=== PATIENT | male | born 1965 | race Caucasian/White ===

== ENCOUNTER 2020-01-23 16:41 | Emergency (ER) | payer OTHER ==
[2020-01-23] MEDS ORDERED: Ondansetron 4 MG/2 ML SDV IVPUSH ONE (16:44)
[2020-01-23] MEDS ORDERED: Sodium Chloride 0.9% 1,000 ML IV ONE ×3 (16:44→19:05)
[2020-01-23 17:12] LABS: HEMOGLOBIN A1C 4.8 % (4.3-5.7)
[2020-01-23] MEDS ORDERED: Thiamine 100 MG in Sodium Chloride 0.9% 100 ML IV ONE (17:17)
[2020-01-23] MEDS ORDERED: Pantoprazole 40 MG Vial IVPUSH ONE (17:18)
[2020-01-23] MEDS ORDERED: Famotidine 20 MG/2 ML SDV IVPUSH ONE (17:18)
[2020-01-23] MEDS ORDERED: Promethazine 25 MG/ML SDV IM ONE (17:18)
[2020-01-23] MEDS ORDERED: Morphine 2 MG/ML Syringe IM ONE (18:06)
[2020-01-23] MEDS ORDERED: Ertapenem 1 GM in Sodium Chloride 0.9% 100 ML IV ONE (18:06)
[2020-01-23] MEDS ORDERED: Iopamidol 612 MG/ML 100 ML Bottle IVPUSH ONE (18:06)
[2020-01-23] MEDS ORDERED: LORazepam 2 MG/ML SDV IVPUSH ONE (18:11)
--- NOTE | 2020-01-23 18:25 | EDM.PDOC ---
ED HPI GENERAL MEDICAL PROBLEM - General Chief Complaint: General Stated Complaint: nausea, vomiting, abdominal/chest pain Time Seen by Provider: 01/23/20 17:06 Source of Information: Reports: Patient History Limitations: Reports: No Limitations - History of Present Illness INITIAL COMMENTS - FREE TEXT/NARRATIVE: Patient comes to ER via ambulance after experiencing a four day history of upper abdominal pain, nausea/emesis. Unable to keep food down. Minimally able to take fluids. Admits to ETOH dependence and reports that he drinks 6-7 juice glasses of bourbon daily. Gets shaky when he does not drink alcohol but denies hallucinations. Unable to drink ETOH with current symptoms. Denies having symptoms like this before. Has had diverticulitis but that felt different than current pain. Denies vomiting any blood/passage of blood in stool. Minimal bowel movements/ urination over last 4 days. Denies fever/chills. Denies and URI/respiratory changes/dry cough/SOB. Pain does not radiate anywhere. Feels weak, unable to get off of couch this afternoon. Did faint once at home and sustained small scalp wound right posterior scalp. Denies neck pain/headache/limb pain from fall. No other acute changes reported. abominal pain/chest Pain Score (Numeric/FACES): 8 - Related Data Allergies Allergy/AdvReac Type Severity Reaction Status Date / Time No Known Drug Allergies Allergy Cannot Verified 01/23/20 16:43 Remember Home Meds: Home Meds Omeprazole 20 mg PO DAILY 01/05/18 [History] Past Medical History HEENT History: Reports: Impaired Vision Cardiovascular History: Reports: None Respiratory History: Reports: Other (See Below) Other Respiratory History: hay fever Gastrointestinal History: Reports: Colon Polyp, Diverticulosis, GERD, Hemorrhoids, Other (See Below) Other Gastrointestinal History: abdominal hernia Genitourinary History: Reports: None Musculoskeletal History: Reports: Osteoarthritis Neurological History: Reports: None Psychiatric History: Reports: Addiction (ETOH) Hematologic History: Reports: None Immunologic History: Reports: None Dermatologic History: Reports: Eczema Other Dermatologic History: rosacia - Infectious Disease History Infectious Disease History: Reports: Chicken Pox - Past Surgical History HEENT Surgical History: Reports: None Cardiovascular Surgical History: Reports: None Respiratory Surgical History: Reports: None GI Surgical History: Reports: Colonoscopy, Polypectomy Other GI Surgeries/Procedures: colonoscopy today 01/05/18 Male Surgical History: Reports: None Neurological Surgical History: Reports: None Musculoskeletal Surgical History: Reports: None Dermatological Surgical History: Reports: None Social & Family History - Family History Family Medical History: Noncontributory - Tobacco Use Smoking Status *Q: Never Smoker - Caffeine Use Caffeine Use: Reports: Coffee, Soda, Tea - Alcohol Use Days Per Week of Alcohol Use: 7 Number of Drinks Per Day: 6 Total Drinks Per Week: 42 Date of Last Drink: 01/18/20 Alcohol Use in Last Twelve Months: Yes Alcohol Use Frequency: Daily - Recreational Drug Use Recreational Drug Use: No Drug Use in Last 12 Months: No ED ROS GENERAL - Review of Systems Review Of Systems: See Below Constitutional: Reports: Malaise, Weakness, Fatigue, Decreased Appetite. Denies : Fever, Chills, Night Sweats, Diaphoresis HEENT: Denies: Ear Pain, Eye Pain, Nosebleed, Nose Pain, Rhinitis, Sinus Problem , Throat Pain, Throat Swelling, Vertigo, Vision Change Respiratory: Reports: No Symptoms Cardiovascular: Reports: Lightheadedness, Syncope. Denies: Chest Pain, Edema, Orthopnea, Palpitations GI/Abdominal: Reports: Abdominal Pain, Anorexia, Decreased Appetite, Nausea, Vomiting. Denies: Black Stool, Bloody Stool, Constipation, Diarrhea, Difficulty Swallowing, Distension, Hematemesis, Hematochezia : Denies: Frequency, Hematuria, Urgency Musculoskeletal: Reports: No Symptoms Skin: Reports: No Symptoms Neurological: Reports: Dizziness, Syncope, Difficulty Walking (weak), Weakness ( global). Denies: Headache, Numbness, Paresthesia, Seizure, Tingling, Tremors, Change in Speech Psychiatric: Reports: Cravings (ETOH). Denies: Confusion, Hallucinations, Homicidal Ideation, Mood Lability, Suicidal Ideation Hematologic/Lymphatic: Reports: No Symptoms ED EXAM, GENERAL - Physical Exam Exam: See Below Exam Limited By: No Limitations General Appearance: Alert, WD/WN, Other (pale, no acute distress) Eye Exam: Bilateral Eye: EOMI, PERRL Ears: Hearing Grossly Normal, Other (dried blood noted left ear/appears to be from scalp wound) Nose: No: Nasal Deformity, Nasal Swelling, Nasal Drainage Throat/Mouth: Normal Lips, Normal Voice, No Airway Compromise Head: Atraumatic, Normocephalic Neck: Normal Inspection, Supple, Non-Tender, Full Range of Motion. No: Tender Lateral, Tender Midline Respiratory/Chest: No Respiratory Distress, Lungs Clear, Normal Breath Sounds, No Accessory Muscle Use, Chest Non-Tender Cardiovascular: No Murmur, Tachycardia Peripheral Pulses: 2+: Radial (L), Radial (R) GI/Abdominal: Soft, Tender (globally tender, more so in epigastric/LUQ/RUQ), Abnormal Bowel Sounds (quiet throughout). No: No Distention, Guarding, Rigid, Rebound (Male) Exam: Deferred Rectal (Males) Exam: Deferred Back Exam: No: CVA Tenderness (L), CVA Tenderness (R), Muscle Spasm, Paraspinal Tenderness, Vertebral Tenderness Extremities: Normal Range of Motion, Non-Tender, Slow Capillary Refill Neurological: Alert, Oriented, Normal Cognition, Other (equal tone/strength bilaterally upper and lower extremities) Psychiatric: Normal Affect, Normal Mood Skin Exam: Warm, Dry, Ecchymosis (left elbow), Wound/Incision (dried blood over small laceration left posterior scalp) EKG INTERPRETATION EKG Date: 01/23/20 Time: 16:55 Rhythm: Other (Sinus tachycardia) Rate (Beats/Min): 148 [place]: Normal P-Wave: Present QRS: Normal ST-T: Normal QT: Normal Course - Vital Signs Last Recorded V/S: Last Vital Signs Temp 36.3 C 01/23/20 16:52 Pulse 132 H 01/23/20 19:07 Resp 27 H 01/23/20 19:07 BP 121/62 01/23/20 19:07 Pulse Ox 100 01/23/20 19:07 - Orders/Labs/Meds Orders: Active Orders 24 hr Category Date Time Status EKG Documentation Completion [RC] ASDIRECTED Care 01/23/20 16:53 Active Glucose [Blood Glucose Check, Bedside] [RC] ONETIME Care 01/23/20 19:16 Ordered Abdomen 2V AP Flat Upright [CR] Stat Exams 01/23/20 17:35 Ordered Abdomen w Cont [CT] Stat Exams 01/23/20 18:03 Ordered Chest 1V Frontal [CR] Stat Exams 01/23/20 17:02 Ordered CULTURE BLOOD [BC] Stat Lab 01/23/20 16:50 Received CULTURE BLOOD [BC] Stat Lab 01/23/20 17:00 Received Sodium Chloride 0.9% [Normal Saline] 1,000 ml Med 01/23/20 19:05 Ordered IV .BOLUS Sodium Chloride 0.9% [Saline Flush] Med 01/23/20 18:05 Ordered 10 ml FLUSH ASDIRECTED PRN Blood Culture x2 Reflex Set [OM.PC] Stat Oth 01/23/20 16:55 Ordered Saline Lock Insert [OM.PC] Routine Oth 01/23/20 18:05 Ordered Medication Orders Sodium Chloride (Normal Saline) 1,000 mls @ 500 mls/hr IV .BOLUS ONE Stop: 01/23/20 21:04 Last Admin: 01/23/20 19:13 Dose: 500 mls/hr Sodium Chloride (Saline Flush) 10 ml FLUSH ASDIRECTED PRN PRN Reason: Keep Vein Open Last Admin: 01/23/20 19:17 Dose: 10 ml Admin: 01/23/20 19:11 Dose: 10 ml Labs: Laboratory Tests 01/23/20 01/23/20 01/23/20 Range/Units 17:00 17:00 17:00 WBC 12.5 H (4.0-10.2) K/uL RBC 4.65 (4.33-5.41) M/uL Hgb 16.5 D (13.1-16.8) g/dL Hct 47.5 (39.0-49.0) % MCV 102.2 H D (84.0-98.0) fL MCH 35.5 H (28.2-33.3) pg MCHC 34.7 (31.7-36.0) g/dL RDW 11.4 (11.2-14.1) % Plt Count 72 L D (150-350) K/uL Neut % (Auto) 92.8 H (45.0-80.0) % Lymph % (Auto) 1.4 L (10.0-50.0) % [place] % (Auto) 5.5 (2.0-14.0) % Eos % (Auto) 0.0 (0.0-5.0) % Baso % (Auto) 0.3 (0.0-2.0) % Neut # (Auto) 11.58 H (1.40-7.00) K/uL Lymph # (Auto) 0.17 L (0.50-3.50) K/uL [place] # (Auto) 0.68 (0.00-1.00) K/uL Eos # (Auto) 0.00 (0.00-0.50) K/uL Baso # (Auto) 0.04 (0.00-0.20) K/uL Sodium 129 L D (136-145) mmol/L Potassium 3.7 (3.5-5.1) mmol/L Chloride 87 L D (98-107) mmol/L Carbon Dioxide 13.9 L D (21.0-32.0) mmol/L BUN 21 H (7-18) mg/dL Creatinine 1.45 H (0.51-1.17) mg/dL Est Cr Clr Drug Dosing 57.00 mL/min Estimated GFR (MDRD) 51 mL/min Glucose 371 H (74-106) mg/dL Hemoglobin A1c (4.3-5.7) % Lactic Acid 8.6 H (0.4-2.0) mmol/L Calcium 8.5 (8.5-10.1) mg/dL Magnesium 1.6 L (1.8-2.4) mg/dL Total Bilirubin 7.0 H (0.2-1.0) mg/dL AST 166 H (15-37) U/L ALT 68 (12-78) U/L Alkaline Phosphatase 180 H (46-116) IU/L Total Protein 8.1 (6.4-8.2) g/dL Albumin 4.0 (3.4-5.0) g/dL Amylase (25-115) U/L Lipase (73-393) U/L Ethyl Alcohol (0.000-0.080) g/dL 01/23/20 01/23/20 01/23/20 Range/Units 17:00 17:00 18:41 WBC (4.0-10.2) K/uL RBC (4.33-5.41) M/uL Hgb (13.1-16.8) g/dL Hct (39.0-49.0) % MCV (84.0-98.0) fL MCH (28.2-33.3) pg MCHC (31.7-36.0) g/dL RDW (11.2-14.1) % Plt Count (150-350) K/uL Neut % (Auto) (45.0-80.0) % Lymph % (Auto) (10.0-50.0) % [place] % (Auto) (2.0-14.0) % Eos % (Auto) (0.0-5.0) % Baso % (Auto) (0.0-2.0) % Neut # (Auto) (1.40-7.00) K/uL Lymph # (Auto) (0.50-3.50) K/uL [place] # (Auto) (0.00-1.00) K/uL Eos # (Auto) (0.00-0.50) K/uL Baso # (Auto) (0.00-0.20) K/uL Sodium (136-145) mmol/L Potassium (3.5-5.1) mmol/L Chloride (98-107) mmol/L Carbon Dioxide (21.0-32.0) mmol/L BUN (7-18) mg/dL Creatinine (0.51-1.17) mg/dL Est Cr Clr Drug Dosing mL/min Estimated GFR (MDRD) mL/min Glucose (74-106) mg/dL Hemoglobin A1c 4.8 (4.3-5.7) % Lactic Acid 6.2 H (0.4-2.0) mmol/L Calcium (8.5-10.1) mg/dL Magnesium (1.8-2.4) mg/dL Total Bilirubin (0.2-1.0) mg/dL AST (15-37) U/L ALT (12-78) U/L Alkaline Phosphatase (46-116) IU/L Total Protein (6.4-8.2) g/dL Albumin (3.4-5.0) g/dL Amylase 795 H (25-115) U/L Lipase 9237 H (73-393) U/L Ethyl Alcohol 0.002 (0.000-0.080) g/dL Meds: Medications Generic Name Dose Route Start Last Admin Trade Name Freq PRN Reason Stop Dose Admin Sodium Chloride 1,000 mls @ 500 mls/hr 01/23/20 19:05 01/23/20 19:13 Normal Saline IV 01/23/20 21:04 500 mls/hr .BOLUS ONE Administration Sodium Chloride 10 ml 01/23/20 18:05 01/23/20 19:17 Saline Flush FLUSH 10 ml ASDIRECTED PRN Administration Keep Vein Open Discontinued Medications Generic Name Dose Route Start Last Admin Trade Name Janey PRN Reason Stop Dose Admin Famotidine 20 mg 01/23/20 17:18 01/23/20 17:56 Pepcid IVPUSH 01/23/20 17:19 20 mg ONETIME ONE Administration Sodium Chloride 1,000 mls @ 999 mls/hr 01/23/20 16:44 01/23/20 16:49 Normal Saline IV 01/23/20 17:44 999 mls/hr .BOLUS ONE Administration Thiamine HCl 100 mg/ Sodium 101 mls @ 202 mls/hr 01/23/20 17:17 01/23/20 17: 56 Chloride IV 01/23/20 17:18 202 mls/hr ONETIME ONE Administration Sodium Chloride 1,000 mls @ 999 mls/hr 01/23/20 17:35 01/23/20 19:12 Normal Saline IV 01/23/20 18:35 999 mls/hr .BOLUS ONE Administration Magnesium Sulfate/Dextrose 1 100 mls @ 100 mls/hr 01/23/20 17:35 01/23/20 18: 56 gm/ Premix IV 01/23/20 18:34 100 mls/hr ONETIME ONE Administration Ertapenem 1 gm/ Sodium 100 mls @ 200 mls/hr 01/23/20 18:06 01/23/20 18:34 Chloride IV 01/23/20 18:35 200 mls/hr ONETIME ONE Administration Iopamidol 100 ml 01/23/20 18:06 01/23/20 19:07 Isovue-300 (61%) IVPUSH 01/23/20 18:07 100 ml ONETIME ONE Administration Lorazepam 1 mg 01/23/20 18:11 01/23/20 18:58 Ativan IVPUSH 01/23/20 18:12 1 mg ONETIME ONE Administration Morphine Sulfate 4 mg 01/23/20 18:06 01/23/20 18:11 Morphine IM 01/23/20 18:07 4 mg ONETIME ONE Administration Ondansetron HCl 4 mg 01/23/20 16:44 01/23/20 16:49 Zofran IVPUSH 01/23/20 16:45 4 mg ONETIME ONE Administration Pantoprazole Sodium 40 mg 01/23/20 17:18 01/23/20 17:56 Protonix Iv IVPUSH 01/23/20 17:19 40 mg ONETIME ONE Administration Promethazine HCl 25 mg 01/23/20 17:18 01/23/20 17:57 Phenergan IM 01/23/20 17:19 25 mg ONETIME ONE Administration - Re-Assessments/Exams Free Text/Narrative Re-Assessment/Exam: Labs requested. IV bolus ordered. New IV needed to be established after EMS IV failed. Some of initial fluid bolus lost. Initial BP low/patient tachycardic. BP improved with IV bolus. Second liter of IV fluid ordered. Labs confirmed pancreatitis. Multiple abnormalities noted, including WBC/HGB/BUN/Cr/Glu/Bili/AST/Alk Phos elevation Platelets/CO2/Magnesium/Na low Amylase 795 Lipase 9237 Lactic Acid 8.6 Given overall severity of symptoms/continued tachycardia/high lactic acid, [facility] was contacted and patient discussed with . accepted patient for transfer. He requested that patient receive IV Ertapenem prior to transfer and see if we could obtain abdominal CT as well as repeat lactic acid after one liter of IV fluids infused. Ertapenem ordered. Patient also received IV Protonix/Thiamine/Pepcid/MS/Zofran. IM Phenergan given for patient's continued nausea. Ativan given for coverage of ETOH withdrawal symptoms. Mag ordered. Scalp laceration cleansed by nursing staff. Has closed on own. No drainage. No sutures placed at this time. Free Text/Narrative Re-Assessment/Exam: 01/23/20 19:04 Repeat Lactic acid noted to be 6.2 CT has been performed, pending formal Radiology read. Will arrange transport of patient via EMS Heart rate and BP improving/responding to IV fluids. Departure - Departure Time of Disposition: 19:05 Disposition: DC/Tfer to Acute Hospital 02 Condition: Fair Clinical Impression: Thrombocytopenia, Dehydration, Hyponatremia, Elevated lactic acid level, Hypomagnesemia Pancreatitis, acute Qualifiers: Pancreatitis type: alcohol induced Acute pancreatitis complication: unspecified Qualified Code(s): K85.20 - Alcohol induced acute pancreatitis without necrosis or infection Hypotension Qualifiers: Hypotension type: hypotension due to hypovolemia Qualified Code(s): I95.89 - Other hypotension; E86.1 - Hypovolemia EtOH dependence Qualifiers: Substance use status: unspecified alcohol-induced disorder Qualified Code(s): F10.29 - Alcohol dependence with unspecified alcohol-induced disorder Laceration of scalp Qualifiers: Encounter type: initial encounter Qualified Code(s): S01.01XA - Laceration without foreign body of scalp, initial encounter - Discharge Information *PRESCRIPTION DRUG MONITORING PROGRAM REVIEWED*: Not Applicable *COPY OF PRESCRIPTION DRUG MONITORING REPORT IN PATIENT VALENTÍN: Not Applicable Referrals: PCP,None [Primary Care Provider] - Forms: ED Department Discharge Sepsis Event Note - Evaluation Sepsis Screening Result: Possible Severe Sepsis Risk - Focused Exam Vital Signs: Vital Signs Temp Pulse Resp BP Pulse Ox 01/23/20 19:07 132 H 27 H 121/62 100 01/23/20 19:00 130 H 34 H 133/68 99 01/23/20 18:40 124 H 24 H 128/73 01/23/20 18:15 128 H 27 H 128/81 100 01/23/20 18:00 133 H 30 H 114/69 99 01/23/20 17:30 142 H 21 H 104/69 99 01/23/20 17:15 144 H 32 H 90/61 99 01/23/20 17:00 147 H 30 H 102/61 98 01/23/20 16:52 36.3 C 143 H 30 H 64/38 L 97 Date Exam was Performed: 01/23/20 Time Exam was Performed: 19:20 - My Orders Last 24 Hours: My Active Orders 01/23/20 16:50 CULTURE BLOOD [BC] Stat 01/23/20 16:53 EKG Documentation Completion [RC] ASDIRECTED 01/23/20 16:55 Blood Culture x2 Reflex Set [OM.PC] Stat 01/23/20 17:00 CULTURE BLOOD [BC] Stat 01/23/20 17:02 Chest 1V Frontal [CR] Stat 01/23/20 17:35 Abdomen 2V AP Flat Upright [CR] Stat 01/23/20 18:03 Abdomen w Cont [CT] Stat 01/23/20 18:05 Sodium Chloride 0.9% [Saline Flush] 10 ml FLUSH ASDIRECTED PRN Saline Lock Insert [OM.PC] Routine 01/23/20 19:05 Sodium Chloride 0.9% [Normal Saline] 1,000 ml IV .BOLUS 01/23/20 19:16 Glucose [Blood Glucose Check, Bedside] [RC] ONETIME - Assessment/Plan Last 24 Hours: My Active Orders 01/23/20 16:50 CULTURE BLOOD [BC] Stat 01/23/20 16:53 EKG Documentation Completion [RC] ASDIRECTED 01/23/20 16:55 Blood Culture x2 Reflex Set [OM.PC] Stat 01/23/20 17:00 CULTURE BLOOD [BC] Stat 01/23/20 17:02 Chest 1V Frontal [CR] Stat 01/23/20 17:35 Abdomen 2V AP Flat Upright [CR] Stat 01/23/20 18:03 Abdomen w Cont [CT] Stat 01/23/20 18:05 Sodium Chloride 0.9% [Saline Flush] 10 ml FLUSH ASDIRECTED PRN Saline Lock Insert [OM.PC] Routine 01/23/20 19:05 Sodium Chloride 0.9% [Normal Saline] 1,000 ml IV .BOLUS 01/23/20 19:16 Glucose [Blood Glucose Check, Bedside] [RC] ONETIME
[2020-01-23] MEDS: Sodium Chloride 0.9% 10 ML Syringe FLUSH PRN ×2 (19:11→19:17)
== END 2020-01-23 19:45 ==
LOC: LL.ED 16:41
DX: K85.20 Alcohol induced acute pancreatitis without necrosis or infection (principal); D69.6 Thrombocytopenia, unspecified; E87.1 Hypo-osmolality and hyponatremia; E86.0 Dehydration; I95.89 Other hypotension; E86.1 Hypovolemia; S01.01XA Laceration without foreign body of scalp, initial encounter; R74.0 Nonspecific elevation of levels of transaminase and lactic acid dehydrogenase [LDH]; E83.42 Hypomagnesemia; F10.29 Alcohol dependence with unspecified alcohol-induced disorder; K21.9 Gastro-esophageal reflux disease without esophagitis; W19.XXXA Unspecified fall, initial encounter; Y92.009 Unspecified place in unspecified non-institutional (private) residence as the place of occurrence of the external cause
CPT/HCPCS: 36415; 71045; 74019; 74160; 80053; 80307; 82150; 82962; 83036; 83605; 83690; 83735; 85025; 87040; 93005; 96365; 96367; 96372; 96375; 99285-25; C9113; J1335; J2060; J2270; J2405; J2550; J3411; J3475; J3490; J7030; J7050; Q9967

== ENCOUNTER 2020-07-03 18:21 | Observation (INO) | payer OTHER ==
[2020-07-03] MEDS ORDERED: Iopamidol 612 MG/ML 100 ML Bottle IVPUSH ONE (18:51)
[2020-07-03 19:05] LABS: CHLORIDE,CL 104 mmol/L (98-107); PTT,PARTIAL THROMBOPLSTIN TIME 24.9 SEC (24.5-32.8); SODIUM,NA 142 mmol/L (136-145)
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
[2020-07-03] MEDS ORDERED: Sodium Chloride 0.9% 1,000 ML IV ONE (20:03)
[2020-07-03] MEDS ORDERED: LORazepam 2 MG/ML SDV IVPUSH ONE (20:37)
[2020-07-03] MEDS ORDERED: Morphine 2 MG/ML SYRINGE IVPUSH PRN (21:43)
[2020-07-03] MEDS ORDERED: Ondansetron 4 MG/2 ML SDV IVPUSH PRN (21:43)
[2020-07-03] MEDS ORDERED: LORazepam 2 MG/ML SDV IVPUSH PRN (21:47)
[2020-07-03] MEDS: Ketorolac 30 MG/ML SDV IVPUSH PRN (22:09)
[2020-07-03] MEDS: Sodium Chloride 0.9% 1,000 ML IV SCH (22:13)
[2020-07-04] MEDS: Acetaminophen 325 MG Tab PO PRN ×2 (01:12→08:33)
[2020-07-04] MEDS: Ketorolac 30 MG/ML SDV IVPUSH PRN ×3 (05:13→22:37)
[2020-07-04] MEDS: Sodium Chloride 0.9% 1,000 ML IV SCH (05:15)
[2020-07-04 07:21] LABS: BARBITURATE SCREEN,URINE NEGATIVE (NEGATIVE); BENZODIAZEPINES SCREEN,URINE NEGATIVE (NEGATIVE); EDDP,URINE SCREEN NEGATIVE (NEGATIVE); TCA SCREEN,URINE NEGATIVE (NEGATIVE); THC SCREEN,URINE 50 NG/ML NEGATIVE (NEGATIVE)
[2020-07-04 07:59] LABS: CHLORIDE,CL 106 mmol/L (98-107); SODIUM,NA 138 mmol/L (136-145)
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
[2020-07-04] MEDS: Metoprolol Tartrate 25 MG Tab PO SCH (09:34)
[2020-07-04] MEDS: traMADol 50 MG Tab PO PRN (13:26)
[2020-07-04] MEDS ORDERED: Sodium Chloride 0.9% 10 ML Syringe FLUSH PRN (16:33)
[2020-07-04] MEDS ORDERED: Sodium Chloride 0.9% 500 ML IV ONE (22:00)
[2020-07-05] MEDS: traMADol 50 MG Tab PO PRN (07:53)
[2020-07-05] MEDS: Metoprolol Tartrate 25 MG Tab PO SCH (07:54)
[2020-07-05 08:01] LABS: CHLORIDE,CL 106 mmol/L (98-107); SODIUM,NA 139 mmol/L (136-145)
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
== END 2020-07-05 10:30 | disposition home or self-care (01) ==
LOC: LL.ED 18:21 → LL.MS 21:10
PROVIDERS: ADMIT Emergency Medicine; ATTEND Emergency Medicine
DX: S10.91XA Abrasion of unspecified part of neck, initial encounter (principal); R74.8 Abnormal levels of other serum enzymes; F10.239 Alcohol dependence with withdrawal, unspecified; S80.12XA Contusion of left lower leg, initial encounter; K21.9 Gastro-esophageal reflux disease without esophagitis; R31.9 Hematuria, unspecified; R79.89 Other specified abnormal findings of blood chemistry; K86.0 Alcohol-induced chronic pancreatitis; M19.90 Unspecified osteoarthritis, unspecified site; V86.59XA Driver of other special all-terrain or other off-road motor vehicle injured in nontraffic accident, initial encounter; Z79.899 Other long term (current) drug therapy; Z86.010 Personal history of colon polyps; Z98.890 Other specified postprocedural states
CPT/HCPCS: 36415; 70450; 70490; 71260; 72125; 74177; 80053; 80305-QW; 80307; 81001; 82150; 82550; 82553; 83605; 83690; 83735; 84484; 85025; 85610; 85730; 93005; 93010; 96361; 96374; 96375; 96376; 99217; 99219; 99225; 99285-25; A9270-GY; G0378; J1885; J2060; J7030; J7040; Q9967

== ENCOUNTER 2021-01-14 07:05 | Emergency (ER) | payer OTHER ==
[2021-01-14] MEDS ORDERED: Famotidine 20 MG/2 ML SDV IVPUSH ONE (07:24)
[2021-01-14] MEDS ORDERED: Pantoprazole 40 MG Vial IVPUSH ONE (07:24)
[2021-01-14] MEDS ORDERED: Ondansetron 4 MG/2 ML SDV IVPUSH ONE ×2 (07:24→08:21)
[2021-01-14] MEDS ORDERED: Lactated Ringers 1,000 ML IV ONE (07:24)
--- NOTE | 2021-01-14 07:24 | EDM.PDOC ---
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 region. Pr eliminary verbal report was not received from the radiology department at [facility] as previously requested. Chest x-ray, portable, shows possible pulmonary obstructive disease with a rtifactual changes in the right thoracic cavity secondary to patient angulation at time of the x-rays. No evidence of pneumothorax, pulmonary infiltrates, cardiomegaly, or CHF. Possible pulmonary hypertension. Departure - Departure Time of Disposition: 15:15 Disposition: DC/Tfer to Acute Hospital 02 Condition: Fair Clinical Impression: Peptic reflux disease, Mixed anxiety depressive disorder, Chronic alcoholic pancreatitis, Elevated lactic acid level, Hypomagnesemia Alcohol withdrawal Qualifiers: Complication of substance-induced condition: uncomplicated Qualified Code(s): F10.230 - Alcohol dependence with withdrawal, uncomplicated EtOH dependence Qualifiers: Substance use status: in withdrawal Complication of substance-induced condition: uncomplicated Qualified Code(s): F10.230 - Alcohol dependence with withdrawal, uncomplicated Osteoarthritis Qualifiers: Osteoarthritis location: multiple joints Osteoarthritis type: primary Qualified Code(s): M89.49 - Other hypertrophic osteoarthropathy, multiple sites - Discharge Information *PRESCRIPTION DRUG MONITORING PROGRAM REVIEWED*: Not Applicable *COPY OF PRESCRIPTION DRUG MONITORING REPORT IN PATIENT VALENTÍN: Not Applicable Referrals: Iesha Alcocer PA-C [Primary Care Provider] - Forms: ED Department Discharge, Interfacility Transfer [facility] Sepsis Event Note (ED) - Evaluation Sepsis Screening Result: No Definite Risk - Focused Exam Vital Signs: Vital Signs Temp Pulse Pulse Resp BP BP Pulse Ox 01/14/21 14:56 106 H 146/82 H 01/14/21 14:54 109 H 159/86 H 01/14/21 14:15 36.8 C 106 H 15 159/86 H 96 01/14/21 13:45 110 H 15 156/87 H 96 01/14/21 13:15 36.7 C 121 H 30 H 145/94 H 97 01/14/21 12:45 118 H 30 H 164/131 H 96 01/14/21 12:15 36.3 C 86 19 149/78 H 96 01/14/21 11:45 79 24 H 147/82 H 98 01/14/21 11:15 36.6 C 76 18 150/83 H 98 01/14/21 10:45 36.3 C 75 19 144/78 H 98 01/14/21 09:45 36.9 C 79 22 H 152/82 H 99 01/14/21 09:15 74 20 151/89 H 98 01/14/21 08:45 36.8 C 98 23 H 155/92 H 98 01/14/21 08:15 89 22 H 146/84 H 98 01/14/21 07:45 36.8 C 120 H 22 H 136/95 H 96 01/14/21 07:14 36.3 C 120 H 22 H 136/81 96 - Problem List & Annotations (1) Chronic alcoholic pancreatitis SNOMED Code(s): 931143171 Code(s): K86.0 - ALCOHOL-INDUCED CHRONIC PANCREATITIS Status: Acute Priority: Low Current Visit: Yes Annotation/Comment:: Telephone consultation at 10:[address] Quispe, ER physician/hospitalist at [facility] in [place], who does accept the patient for further treatment and evaluation, with no further treatment recommendations given. In spite of involvement of the pancreatic head and pancreatic duct Dr. Morgan does feel that IV Dilaudid would be appropriate with no evidence of true obstruction, etc. Diffuse abdominal pain secondary to his exacerbation of his chronic pancreatitis. Borderline peritoneal signs were noted. No evidence of fever, however note mild to moderate leukocytosis with moderately elevated lactic acid level. Note previous history of intermittent elevated lactic acid level, however previous sepsis in January and 2019 by patient history. 1 L lactated Ringer's initiated immediately upon patient's arrival to this facility. IV Levaquin with initiation of sepsis protocol, including recommended repeat lactic acid level in the emergency room which showed only minimal improvement of his lactic acid. His background lactated Ringer's fluid was subsequently increased with additional 2 g of IV vancomycin initiated in the emergency room prior to transfer. Recommend repeat lactic acid level by the accepting providers within the next 3 hours. Note delay in patient transfer secondary to the lack of bed availability at [facility] without sequela. Blood cultures x2 were collected prior to initiation of the antibiotics. No clinical evidence of pneumonia with chest x-ray conducted in this facility. Chronic pancreatitis secondary to alcohol abuse with previous history of pseudocyst as above. IM Demerol and Phenergan were initially given for pain control secondary to this history. IV Toradol was subsequently required with Dr. Quispe recommending additional Dilaudid therapy as above, which was also required. In addition note IV Ativan administered during his emergency room care as above, including a dose shortly prior to his transfer secondary to increasing tremor and signs of DTs with additional low-dose IV and oral metoprolol given secondary to persistent sinus tachycardia. No chest pain or anginal type symptoms. Note elevated LFTs, lipase, and amylase, although normal total bilirubin. UA with with culture and sensitivity could not be obtained prior to transfer despite aggressive IV hydration as above. Otherwise clinical exam and vital signs were stable at time of patient transfer. Paramedics may administer further IV Dilaudid and IV Ativan with discretion in route especially in light of the interaction of these medications. (2) Elevated lactic acid level SNOMED Code(s): 2186157 Code(s): R79.89 - OTHER SPECIFIED ABNORMAL FINDINGS OF BLOOD CHEMISTRY Status: Acute Priority: High Current Visit: Yes Onset Date: 01/14/21 Annotation/Comment:: As above. (3) Peptic reflux disease SNOMED Code(s): 807353481 Code(s): K21.9 - GASTRO-ESOPHAGEAL REFLUX DISEASE WITHOUT ESOPHAGITIS Status: Chronic Priority: High Current Visit: Yes Annotation/Comment:: High-dose IV Pepcid and IV Protonix given in the emergency room and GI prophylaxis. Additional IV Zofran was given for his nausea (4) Alcohol withdrawal SNOMED Code(s): 689606973 Code(s): F10.239 - ALCOHOL DEPENDENCE WITH WITHDRAWAL, UNSPECIFIED Status: Acute Priority: High Current Visit: Yes Annotation/Comment:: Long history of alcohol abuse with patient refusing treatment in the past. Note recent alcohol intake as above with only mildly elevated alcohol level today. Some beginning DTs with IV Ativan given in the emergency room as above. No previous history of alcoholic seizures. Psychiatric consultation and alcohol treatment by accepting providers is strongly recommended secondary to patient's significant alcohol history, recurrent/chronic pancreatitis, etc. Qualifiers: Complication of substance-induced condition: uncomplicated Qualified Code(s): F10.230 - Alcohol dependence with withdrawal, uncomplicated (5) Mixed anxiety depressive disorder SNOMED Code(s): 926044943 Code(s): F41.8 - OTHER SPECIFIED ANXIETY DISORDERS Status: Chronic Priority: Medium Current Visit: Yes Annotation/Comment:: Moderately poor control based on today's exam. Note alcohol abuse history as above. (6) Osteoarthritis SNOMED Code(s): 816033109 Code(s): M19.90 - UNSPECIFIED OSTEOARTHRITIS, UNSPECIFIED SITE Status: Chronic Priority: Medium Current Visit: Yes Annotation/Comment:: Stable by history with no history of fall or injury. Qualifiers: Osteoarthritis location: multiple joints Osteoarthritis type: primary Qualified Code(s): M89.49 - Other hypertrophic osteoarthropathy, multiple sites (7) Hypomagnesemia SNOMED Code(s): 914366615 Code(s): E83.42 - HYPOMAGNESEMIA Status: Acute Priority: High Current Visit: Yes Onset Date: 01/14/21 Annotation/Comment:: Likely secondary to his alcohol abuse. IV magnesium sulfate was initiated initiated after completion of 1 L IV bolus of lactated Ringer's as above with a total of 4 g IV given prior to patient's transfer. Note that IV Levaquin was initiated as above with second IV placed with background lactated Ringer's infused along with the above magnesium sulfate for further hydration as per standard sepsis protocol. - Problem List Review Problem List Initiated/Reviewed/Updated: Yes - My Orders Last 24 Hours: My Active Orders 01/14/21 07:24 Abdomen Pelvis w Cont [CT] Stat CULTURE URINE [RM] Stat H PYLORI STOOL ANTIGEN [MREF] Urgent UA W/MICROSCOPIC [URIN] Stat Sodium Chloride 0.9% [Saline Flush] 10 ml FLUSH ASDIRECTED PRN Blood Culture x2 Reflex Set [OM.PC] Urgent Obtain Past Medical Record [OM.PC] Urgent Peripheral IV Insertion Adult [OM.PC] Stat Resuscitation Status Stat 01/14/21 07:26 Peripheral IV Care [RC] . DIRECTED 01/14/21 07:27 DRUG SCREEN, URINE [URCHEM] Stat 01/14/21 Breakfast Nothing Per Oral Diet [DIET] 01/14/21 07:31 Cardiac Monitoring [RC] . DIRECTED 01/14/21 07:40 CULTURE BLOOD [BC] Stat 01/14/21 07:45 CULTURE BLOOD [BC] Stat 01/14/21 10:12 Peripheral IV Care [RC] . DIRECTED Sodium Chloride 0.9% [Saline Flush] 10 ml FLUSH ASDIRECTED PRN Peripheral IV Insertion Adult [OM.PC] Routine 01/14/21 10:16 HYDROmorphone [Dilaudid] 0.5 mg IVPUSH Q1H PRN 01/14/21 10:21 Chest 1V Frontal [CR] Stat 01/14/21 12:57 Lactated Ringers [Ringers, Lactated] 1,000 ml IV ASDIRECTED - Assessment/Plan Last 24 Hours: My Active Orders 01/14/21 07:24 Abdomen Pelvis w Cont [CT] Stat CULTURE URINE [RM] Stat H PYLORI STOOL ANTIGEN [MREF] Urgent UA W/MICROSCOPIC [URIN] Stat Sodium Chloride 0.9% [Saline Flush] 10 ml FLUSH ASDIRECTED PRN Blood Culture x2 Reflex Set [OM.PC] Urgent Obtain Past Medical Record [OM.PC] Urgent Peripheral IV Insertion Adult [OM.PC] Stat Resuscitation Status Stat 01/14/21 07:26 Peripheral IV Care [RC] . DIRECTED 01/14/21 07:27 DRUG SCREEN, URINE [URCHEM] Stat 01/14/21 Breakfast Nothing Per Oral Diet [DIET] 01/14/21 07:31 Cardiac Monitoring [RC] . DIRECTED 01/14/21 07:40 CULTURE BLOOD [BC] Stat 01/14/21 07:45 CULTURE BLOOD [BC] Stat 01/14/21 10:12 Peripheral IV Care [RC] . DIRECTED Sodium Chloride 0.9% [Saline Flush] 10 ml FLUSH ASDIRECTED PRN Peripheral IV Insertion Adult [OM.PC] Routine 01/14/21 10:16 HYDROmorphone [Dilaudid] 0.5 mg IVPUSH Q1H PRN 01/14/21 10:21 Chest 1V Frontal [CR] Stat 01/14/21 12:57 Lactated Ringers [Ringers, Lactated] 1,000 ml IV ASDIRECTED Assessment:: As above. Plan: As above. Extensive precautions were given to the patient, who is in agreement with the treatment plan.
[2021-01-14] MEDS ORDERED: LORazepam 2 MG/ML SDV IVPUSH ONE ×3 (07:31→14:49)
[2021-01-14] MEDS ORDERED: Iopamidol 612 MG/ML 100 ML Bottle IVPUSH ONE (07:31)
[2021-01-14] MEDS ORDERED: Iopamidol 612 MG/ML 100 ML Bottle ONE (07:35)
[2021-01-14] MEDS: Sodium Chloride 0.9% 10 ML Syringe FLUSH PRN ×10 (07:47→14:58)
[2021-01-14 08:00] LABS: PTT,PARTIAL THROMBOPLSTIN TIME 22.3 SEC (24.5-32.8)
[2021-01-14] MEDS ORDERED: Meperidine PF 25 MG/ML SDV IM ONE (08:22)
[2021-01-14] MEDS ORDERED: Promethazine 25 MG/ML SDV IM ONE (08:22)
[2021-01-14 08:25] LABS: SODIUM,NA 141 mmol/L (136-145)
[2021-01-14 08:26] LABS: CHLORIDE,CL 101 mmol/L (98-107)
[2021-01-14] MEDS ORDERED: Levofloxacin/Dextrose 5%-Water 500 MG in Premix Bag 1 BAG IV ONE (09:25)
[2021-01-14] MEDS ORDERED: Magnesium Sulfate/Water 4 GM/100 ML BAG IV ONE (09:26)
[2021-01-14] MEDS ORDERED: Ketorolac 30 MG/ML SDV IVPUSH ONE (10:01)
[2021-01-14] MEDS ORDERED: Lactated Ringers 1,000 ML IV SCH ×2 (10:15→12:57)
[2021-01-14] MEDS ORDERED: HYDROmorphone 0.5 MG/0.5 ML Syringe IVPUSH PRN (10:16)
[2021-01-14] MEDS ORDERED: Vancomycin 2 GM in Sodium Chloride 0.9% 500 ML IV ONE (12:56)
[2021-01-14] MEDS ORDERED: VANCOmycin 2 GM/400 ML 2 GM in Premix Bag 1 BAG IV ONE (13:03)
[2021-01-14] MEDS ORDERED: Metoprolol Tartrate 5 MG/5 ML SDV IVPUSH ONE (14:46)
[2021-01-14] MEDS ORDERED: Metoprolol Tartrate 50 MG Tab PO ONE (14:46)
== END 2021-01-14 15:15 ==
LOC: LL.ED 07:05
DX: K86.0 Alcohol-induced chronic pancreatitis (principal); K21.9 Gastro-esophageal reflux disease without esophagitis; F41.8 Other specified anxiety disorders; R74.01 Elevation of levels of liver transaminase levels; E83.42 Hypomagnesemia; F10.230 Alcohol dependence with withdrawal, uncomplicated; M89.49 Other hypertrophic osteoarthropathy, multiple sites; Y90.8 Blood alcohol level of 240 mg/100 ml or more
CPT/HCPCS: 36415; 71045; 74177; 80053; 80307; 82150; 83605; 83690; 83735; 84550; 85025; 85610; 85730; 87040; 87635; 96365; 96366; 96367; 96372; 96375; 96376; 99284; 99285; A9270; C9113; J1170; J1885; J1956; J2060; J2175; J2405; J2550; J3370; J3475; J3490; J7120; Q9967; U0002

== ENCOUNTER 2023-11-01 15:12 | Inpatient (IN) | payer OTHER ==
[2023-11-01] MEDS ORDERED: Ondansetron 4 MG/2 ML SDV IVPUSH ONE (15:38)
[2023-11-01] MEDS ORDERED: fentaNYL 50 MCG/ML SDV IVPUSH ONE (15:38)
[2023-11-01] MEDS: Sodium Chloride 0.9% 10 ML Syringe FLUSH PRN ×4 (16:07→22:22)
[2023-11-01 16:08] LABS: BASOPHILS ABSOLUTE AUTO 0.05 K/uL (0.00-0.20); BASOPHILS PERCENT AUTO 0.4 % (0.0-2.0); EOSINOPHILS ABSOLUTE AUTO 0.01 K/uL (0.00-0.50); EOSINOPHILS PERCENT AUTO 0.1 % (0.0-5.0); HEMATOCRIT 42.9 % (39.0-49.0); HEMOGLOBIN 15.3 g/dL (13.1-16.8); LYMPHOCYTES PERCENT AUTO 5.5 % (10.0-50.0); MEAN CORPUSCULAR HEMOGLOBIN 33.8 pg (28.2-33.3); MEAN CORPUSCULAR HGB CONC 35.7 g/dL (31.7-36.0); MEAN CORPUSCULAR VOLUME 94.7 fL (84.0-98.0); MONOCYTES ABSOLUTE AUTO 0.66 K/uL (0.00-1.00); MONOCYTES PERCENT AUTO 5.1 % (2.0-14.0); NEUTROPHILS ABSOLUTE AUTO 11.41 K/uL (1.40-7.00); NEUTROPHILS PERCENT AUTO 88.9 % (45.0-80.0); PLATELET COUNT,PLT 140 K/uL (150-350); RED BLOOD CELL COUNT 4.53 M/uL (4.33-5.41); RED CELL DISTRIBUTION WIDTH 11.9 % (11.2-14.1); WHITE BLOOD CELL COUNT,WBC 12.8 K/uL (4.0-10.2)
[2023-11-01 16:23] LABS: INR 1.1 (0.9-1.1); PROTHROMBIN TIME 10.7 SEC (9.0-11.1)
[2023-11-01 16:34] LABS: ALBUMIN 4.3 g/dL (3.4-5.0); BILIRUBIN TOTAL 2.1 mg/dL (0.2-1.0); CALCIUM 9.3 mg/dL (8.5-10.1); CARBON DIOXIDE,CO2 26.5 mmol/L (21.0-32.0); CREATININE 0.84 mg/dL (0.51-1.17); EST CRCL DRUG DOSING (CG) 100.18 mL/min; POTASSIUM,K 3.6 mmol/L (3.5-5.1); PROTEIN TOTAL,TP 8.3 g/dL (6.4-8.2)
[2023-11-01 16:35] LABS: ANION GAP 13.1 meq/L (7-15)
[2023-11-01] MEDS ORDERED: Lactated Ringers 1,000 ML IV ONE (16:42)
[2023-11-01 16:56] LABS: CORONAVIRUS COVID-19 NAA NEGATIVE (NEGATIVE); INFLUENZA A NAA NEGATIVE (NEGATIVE); INFLUENZA B NAA NEGATIVE (NEGATIVE); RESPIRATORY SYNCYTIAL VIR NAA NEGATIVE (NEGATIVE)
[2023-11-01] MEDS ORDERED: Promethazine 25 MG/ML SDV IM PRN (17:38)
[2023-11-01] MEDS ORDERED: Ondansetron 4 MG/2 ML SDV IVPUSH PRN (17:38)
[2023-11-01] MEDS ORDERED: Naloxone 0.4 MG/ML SDV IVPUSH PRN (17:50)
[2023-11-01] MEDS ORDERED: fentaNYL 50 MCG/ML SDV IVPUSH PRN (17:50)
[2023-11-01] MEDS: Tamsulosin 0.4 MG Cap.ER PO SCH (19:01)
[2023-11-01] MEDS: Lactated Ringers 1,000 ML IV SCH (19:01)
[2023-11-01] MEDS: HYDROmorphone 0.5 MG/0.5 ML Syringe IVPUSH PRN ×3 (19:02→22:22)
[2023-11-01] MEDS: Enoxaparin 40 MG/0.4 ML Syringe SUBCUT SCH (19:02)
[2023-11-01] MEDS ORDERED: LORazepam 2 MG/ML SDV IVPUSH PRN (21:23)
[2023-11-02] MEDS: Sodium Chloride 0.9% 10 ML Syringe FLUSH PRN ×4 (00:31→05:35)
[2023-11-02] MEDS: HYDROmorphone 0.5 MG/0.5 ML Syringe IVPUSH PRN ×2 (00:31→02:36)
[2023-11-02] MEDS: Lactated Ringers 1,000 ML IV SCH ×3 (02:38→18:32)
[2023-11-02] MEDS: LORazepam 2 MG/ML SDV IVPUSH PRN ×3 (03:18→13:41)
[2023-11-02] MEDS ORDERED: Metoprolol Tartrate 25 MG Tab PO ONE (05:22)
[2023-11-02 07:40] LABS: BASOPHILS ABSOLUTE AUTO 0.02 K/uL (0.00-0.20); BASOPHILS PERCENT AUTO 0.1 % (0.0-2.0); EOSINOPHILS ABSOLUTE AUTO 0.02 K/uL (0.00-0.50); EOSINOPHILS PERCENT AUTO 0.1 % (0.0-5.0); HEMATOCRIT 42.3 % (39.0-49.0); HEMOGLOBIN 14.8 g/dL (13.1-16.8); LYMPHOCYTES ABSOLUTE AUTO 0.83 K/uL (0.50-3.50); LYMPHOCYTES PERCENT AUTO 6.1 % (10.0-50.0); MEAN CORPUSCULAR HEMOGLOBIN 33.5 pg (28.2-33.3); MEAN CORPUSCULAR VOLUME 95.7 fL (84.0-98.0); MONOCYTES ABSOLUTE AUTO 0.79 K/uL (0.00-1.00); MONOCYTES PERCENT AUTO 5.8 % (2.0-14.0); NEUTROPHILS PERCENT AUTO 87.9 % (45.0-80.0); PLATELET COUNT,PLT 128 K/uL (150-350); RED BLOOD CELL COUNT 4.42 M/uL (4.33-5.41); RED CELL DISTRIBUTION WIDTH 12.2 % (11.2-14.1); WHITE BLOOD CELL COUNT,WBC 13.6 K/uL (4.0-10.2)
[2023-11-02] MEDS: Multivitamin Tab PO SCH (08:00)
[2023-11-02] MEDS: Fish Oil/Omega-3 Fatty Acids 1 Gm Cap PO SCH (08:00)
[2023-11-02] MEDS: Enoxaparin 40 MG/0.4 ML Syringe SUBCUT SCH (08:00)
[2023-11-02 08:19] LABS: ALBUMIN 3.8 g/dL (3.4-5.0); BILIRUBIN TOTAL 7.8 mg/dL (0.2-1.0); CALCIUM 8.5 mg/dL (8.5-10.1); CARBON DIOXIDE,CO2 27.9 mmol/L (21.0-32.0); CREATININE 0.86 mg/dL (0.51-1.17); EST CRCL DRUG DOSING (CG) 97.85 mL/min; MAGNESIUM 1.4 mg/dL (1.8-2.4); POTASSIUM,K 3.1 mmol/L (3.5-5.1); PROTEIN TOTAL,TP 7.4 g/dL (6.4-8.2)
[2023-11-02 08:37] LABS: ANION GAP 11.2 meq/L (7-15)
[2023-11-02] MEDS ORDERED: Potassium Bicarbonate/Cit Ac 20 MEQ Effervescent Tab PO ONE ×2 (12:01→16:51)
[2023-11-02] MEDS ORDERED: Metoprolol Tartrate 50 MG Tab PO ONE (16:48)
[2023-11-02] MEDS ORDERED: Magnesium Hydroxide 400 MG/5 ML Susp 30 ML Cup PO PRN (18:24)
[2023-11-02] MEDS: Tamsulosin 0.4 MG Cap.ER PO SCH (20:03)
[2023-11-02] MEDS ORDERED: LORazepam 1 MG Tab PO PRN (22:04)
[2023-11-03] MEDS ORDERED: LORazepam 0.5 MG Tab PO ONE (00:23)
[2023-11-03] MEDS: Lactated Ringers 1,000 ML IV SCH (01:55)
[2023-11-03 07:41] LABS: BASOPHILS ABSOLUTE AUTO 0.02 K/uL (0.00-0.20); BASOPHILS PERCENT AUTO 0.2 % (0.0-2.0); EOSINOPHILS ABSOLUTE AUTO 0.01 K/uL (0.00-0.50); EOSINOPHILS PERCENT AUTO 0.1 % (0.0-5.0); HEMATOCRIT 34.6 % (39.0-49.0); HEMOGLOBIN 12.2 g/dL (13.1-16.8); LYMPHOCYTES PERCENT AUTO 7.3 % (10.0-50.0); MEAN CORPUSCULAR HEMOGLOBIN 34.2 pg (28.2-33.3); MEAN CORPUSCULAR HGB CONC 35.3 g/dL (31.7-36.0); MEAN CORPUSCULAR VOLUME 96.9 fL (84.0-98.0); MONOCYTES ABSOLUTE AUTO 0.98 K/uL (0.00-1.00); NEUTROPHILS ABSOLUTE AUTO 10.37 K/uL (1.40-7.00); NEUTROPHILS PERCENT AUTO 84.4 % (45.0-80.0); PLATELET COUNT,PLT 88 K/uL (150-350); RED BLOOD CELL COUNT 3.57 M/uL (4.33-5.41); RED CELL DISTRIBUTION WIDTH 12.5 % (11.2-14.1); WHITE BLOOD CELL COUNT,WBC 12.3 K/uL (4.0-10.2)
[2023-11-03 07:52] LABS: ALBUMIN 2.8 g/dL (3.4-5.0); BILIRUBIN TOTAL 8.4 mg/dL (0.2-1.0); CARBON DIOXIDE,CO2 26.8 mmol/L (21.0-32.0); CREATININE 0.81 mg/dL (0.51-1.17); EST CRCL DRUG DOSING (CG) 103.89 mL/min; POTASSIUM,K 3.4 mmol/L (3.5-5.1)
[2023-11-03 07:54] LABS: INR 1.5 (0.9-1.1); PROTHROMBIN TIME 14.4 SEC (9.0-11.1)
[2023-11-03 08:03] LABS: ANION GAP 10.6 meq/L (7-15)
[2023-11-03] MEDS: Fish Oil/Omega-3 Fatty Acids 1 Gm Cap PO SCH (08:16)
[2023-11-03] MEDS: Multivitamin Tab PO SCH (08:16)
[2023-11-03] MEDS: Enoxaparin 40 MG/0.4 ML Syringe SUBCUT SCH (08:21)
[2023-11-03] MEDS ORDERED: Metoprolol Tartrate 50 MG Tab PO ONE ×2 (15:00→17:31)
[2023-11-03] MEDS ORDERED: Adenosine 6 MG/2 ML SDV IVPUSH ONE (15:10)
[2023-11-03 16:04] LABS: BASOPHILS ABSOLUTE AUTO 0.02 K/uL (0.00-0.20); BASOPHILS PERCENT AUTO 0.2 % (0.0-2.0); HEMOGLOBIN 12.6 g/dL (13.1-16.8); LYMPHOCYTES ABSOLUTE AUTO 0.97 K/uL (0.50-3.50); LYMPHOCYTES PERCENT AUTO 7.8 % (10.0-50.0); MEAN CORPUSCULAR HEMOGLOBIN 34.1 pg (28.2-33.3); MEAN CORPUSCULAR VOLUME 97.6 fL (84.0-98.0); MONOCYTES ABSOLUTE AUTO 1.09 K/uL (0.00-1.00); MONOCYTES PERCENT AUTO 8.8 % (2.0-14.0); NEUTROPHILS ABSOLUTE AUTO 10.33 K/uL (1.40-7.00); NEUTROPHILS PERCENT AUTO 83.2 % (45.0-80.0); PLATELET COUNT,PLT 84 K/uL (150-350); RED BLOOD CELL COUNT 3.69 M/uL (4.33-5.41); RED CELL DISTRIBUTION WIDTH 12.7 % (11.2-14.1); WHITE BLOOD CELL COUNT,WBC 12.4 K/uL (4.0-10.2)
[2023-11-03 16:22] LABS: INR 1.4 (0.9-1.1); PROTHROMBIN TIME 14.1 SEC (9.0-11.1)
[2023-11-03 16:27] LABS: ALBUMIN 2.8 g/dL (3.4-5.0); BILIRUBIN TOTAL 4.3 mg/dL (0.2-1.0); CALCIUM 8.3 mg/dL (8.5-10.1); CARBON DIOXIDE,CO2 25.5 mmol/L (21.0-32.0); CREATININE 0.77 mg/dL (0.51-1.17); EST CRCL DRUG DOSING (CG) 109.29 mL/min; PROTEIN TOTAL,TP 6.6 g/dL (6.4-8.2)
[2023-11-03 16:31] LABS: ANION GAP 12.5 meq/L (7-15)
[2023-11-03] MEDS ORDERED: Potassium Bicarbonate/Cit Ac 20 MEQ Effervescent Tab PO ONE ×2 (19:04→20:10)
[2023-11-03] MEDS: Tamsulosin 0.4 MG Cap.ER PO SCH (19:15)
[2023-11-03] MEDS ORDERED: Melatonin 3 MG Tab PO PRN (21:02)
[2023-11-03] MEDS: Lactulose Soln 10 GM/15 ML 30 ML UD Cup PO PRN (21:20)
[2023-11-04 07:17] LABS: BASOPHILS ABSOLUTE AUTO 0.03 K/uL (0.00-0.20); BASOPHILS PERCENT AUTO 0.3 % (0.0-2.0); EOSINOPHILS ABSOLUTE AUTO 0.05 K/uL (0.00-0.50); EOSINOPHILS PERCENT AUTO 0.5 % (0.0-5.0); HEMATOCRIT 33.5 % (39.0-49.0); HEMOGLOBIN 11.5 g/dL (13.1-16.8); LYMPHOCYTES ABSOLUTE AUTO 1.14 K/uL (0.50-3.50); LYMPHOCYTES PERCENT AUTO 10.8 % (10.0-50.0); MEAN CORPUSCULAR HEMOGLOBIN 33.7 pg (28.2-33.3); MEAN CORPUSCULAR HGB CONC 34.3 g/dL (31.7-36.0); MEAN CORPUSCULAR VOLUME 98.2 fL (84.0-98.0); MONOCYTES ABSOLUTE AUTO 1.24 K/uL (0.00-1.00); MONOCYTES PERCENT AUTO 11.7 % (2.0-14.0); NEUTROPHILS ABSOLUTE AUTO 8.12 K/uL (1.40-7.00); NEUTROPHILS PERCENT AUTO 76.7 % (45.0-80.0); PLATELET COUNT,PLT 82 K/uL (150-350); RED BLOOD CELL COUNT 3.41 M/uL (4.33-5.41); RED CELL DISTRIBUTION WIDTH 12.4 % (11.2-14.1); WHITE BLOOD CELL COUNT,WBC 10.6 K/uL (4.0-10.2)
[2023-11-04] MEDS: Fish Oil/Omega-3 Fatty Acids 1 Gm Cap PO SCH (07:27)
[2023-11-04] MEDS: Multivitamin Tab PO SCH (07:27)
[2023-11-04] MEDS: Enoxaparin 40 MG/0.4 ML Syringe SUBCUT SCH (07:28)
[2023-11-04] MEDS: Lactulose Soln 10 GM/15 ML 30 ML UD Cup PO PRN (07:28)
[2023-11-04 07:35] LABS: INR 1.2 (0.9-1.1); PROTHROMBIN TIME 12.3 SEC (9.0-11.1)
[2023-11-04 07:41] LABS: ALBUMIN 2.6 g/dL (3.4-5.0); CALCIUM 7.9 mg/dL (8.5-10.1); CARBON DIOXIDE,CO2 25.4 mmol/L (21.0-32.0); CREATININE 0.64 mg/dL (0.51-1.17); EST CRCL DRUG DOSING (CG) 131.49 mL/min; PROTEIN TOTAL,TP 6.4 g/dL (6.4-8.2)
[2023-11-04 07:44] LABS: ANION GAP 11.5 meq/L (7-15); POTASSIUM,K 2.9 mmol/L (3.5-5.1)
[2023-11-04] MEDS ORDERED: Metoprolol Tartrate 50 MG Tab PO ONE ×2 (08:02→13:22)
[2023-11-04] MEDS: Potassium Bicarbonate/Cit Ac 20 MEQ Effervescent Tab PO SCH ×3 (08:22→10:37)
[2023-11-04 13:58] VITALS: BP 148/83; PULSE 88
== END 2023-11-04 14:35 | disposition home or self-care (01) | DRG 439 ==
LOC: LL.ED 15:12 → LL.MS 17:22
PROVIDERS: ADMIT Physician Assistant; ATTEND Physician Assistant
DX: K85.20 Alcohol induced acute pancreatitis without necrosis or infection (principal); F10.230 Alcohol dependence with withdrawal, uncomplicated; E87.6 Hypokalemia; R00.0 Tachycardia, unspecified; I48.91 Unspecified atrial fibrillation; K21.9 Gastro-esophageal reflux disease without esophagitis; M19.90 Unspecified osteoarthritis, unspecified site; F41.9 Anxiety disorder, unspecified; N40.0 Benign prostatic hyperplasia without lower urinary tract symptoms; F32.A Depression, unspecified; Z98.890 Other specified postprocedural states; Z86.010 Personal history of colon polyps; Z79.899 Other long term (current) drug therapy; Z87.11 Personal history of peptic ulcer disease; Z11.52 Encounter for screening for COVID-19
CPT/HCPCS: 0241U; 36415; 71045; 74176; 80053; 82947; 83605; 83690; 83735; 84132; 85025; 85610; 93005; A9270-GY; J1170; J1650; J2060; J2405; J3010; J3490; J7120